=== PATIENT | female | born 1960 | race Caucasian/White ===

== ENCOUNTER 2019-06-30 07:46 | Outpatient (CLI) | payer BC ==
[~2019-06-30 07:46] MED LIST: INSU100C SQ-INSULIN; INSU100V8 SQ; LEVO125T5 PO; LOVA40TA2 PO
== END 2019-06-30 23:59 | disposition home or self-care (01) ==
LOC: CFH 07:46
PROVIDERS: ATTEND Internal Medicine Cardiovascular Disease
DX: I08.8 Other rheumatic multiple valve diseases (principal); R07.89 Other chest pain; E78.5 Hyperlipidemia, unspecified; E10.8 Type 1 diabetes mellitus with unspecified complications; F10.21 Alcohol dependence, in remission
CPT/HCPCS: 93306